=== PATIENT | female | born 1995 | race African-American/Black ===

== ENCOUNTER 2017-03-27 16:29 | Emergency (ER) | payer MEDICAID ==
[~2017-03-27] VITALS: Ht 170.2 cm; Wt 63.0 kg
[~2017-03-27 16:29] MED LIST: PREN1TAB49 PO
[2017-03-27 16:30] VITALS: BP 123/62
== END 2017-03-27 18:27 | disposition home or self-care (01) ==
LOC: ER 16:45
DX: T65.891A Toxic effect of other specified substances, accidental (unintentional), initial encounter (principal); Y92.89 Other specified places as the place of occurrence of the external cause
CPT/HCPCS: 99283